=== PATIENT | male | born 2000 | race Caucasian/White ===

== ENCOUNTER 2019-09-15 14:52 | Emergency (ER) | payer SELFPAY ==
[~2019-09-15] VITALS: Ht 185.4 cm; Wt 79.5 kg
[2019-09-15 15:03] VITALS: Ht 185.4 cm; Wt 79.5 kg
[2019-09-15] MEDS ORDERED: KEFLEX500 MG PO (17:51)
[2019-09-15] MEDS ORDERED: TORADOL10 MG PO (17:51)
[2019-09-15 18:08] VITALS: BP 126/73
== END 2019-09-15 18:09 | disposition home or self-care (01) ==
LOC: D.ER 14:52
DX: S61.211A Laceration without foreign body of left index finger without damage to nail, initial encounter (principal); S61.213A Laceration without foreign body of left middle finger without damage to nail, initial encounter; W26.0XXA Contact with knife, initial encounter; Y93.9 Activity, unspecified; Y92.9 Unspecified place or not applicable